=== PATIENT | female | born 1980 | race Two or more races ===

== ENCOUNTER → 2017-10-11 | Day surgery (SDC) | payer BC ==
[~2017-10-11] VITALS: Ht 30.5 cm; Wt 0.5 kg
[~2017-10-11] MED LIST: BUPIVACAINE 0.25% INJ 50ML VIAL ONE; BUPIVACAINE W/ EPINEPH 0.25% INJ 50ML MDV ONE; CONJ ESTROGENS 0.625MG/GM VAG CRM 30GM PV ONE; GLYCOPYRROLATE 0.2 MG/ML 1ML VIAL IV ONE; IODINE STRONG 5% SOLN 473ML ONE; LIDOCAINE 1% HCL (LOCAL ANESTH.) INJ 20ML MDV ONE; LIDOCAINE W/ EPINEPHRINE 1% 20ML VIAL ONE; MIDAZOLAM HCL 1MG/1ML-2 ML VIAL ONE; MORPHINE SULF INJ 2 MG/ML SYRINGE 1ML ONE; MORPHINE SULFATE 8mg/ml INJ SDV IV PRN; NEOSTIGMINE 1 MG/ML INJ (10mg/10ML VIAL) IV ONE; ONDANSETRON HCL 4 MG/2 ML VIAL IV ONE; PROPOFOL 10 MG/ML 20 ML IV ONE; ROCURONIUM 10MG/ML 10ML VIAL IV ONE; SILVER NITRATE-POTAS NITRA STICK TOP ONE; ePHEDrine SULFATE 50 MG/ML AMP IV PRN; fentaNYL CITRATE 100 MCG/2 ML VL ONE; hydrALAZINE HCL 20 MG/ML VL IV PRN
[2017-10-11 07:36] LABS: Basophils # (auto) 0.1 uL; Eosinophils # (auto) 0.2 uL; Eosinophils % (auto) 2.5 % (0.0-7.0); Hematocrit 34.7 % (36.0-46.0); Hemoglobin 11.5 g/dL (12.2-16.2); Lymphocytes # (auto) 2.2 uL; Lymphocytes % (auto) 24.9 % (10.0-50.0); Mean Corpuscular Hemoglobin 27.4 pg (28.0-32.0); Mean Corpuscular Hgb Conc. 33.2 g/dL (32.0-36.0); Mean Corpuscular Volume 82.5 fL (80.0-100.0); Monocytes # (auto) 0.5 uL; Monocytes % (auto) 6.1 % (0.0-12.0); Neutrophils # (auto) 5.8 uL; Neutrophils % (auto) 65.5 % (37.0-80.0); Platelet Count (auto) 298 10^3/uL (140-450); Red Blood Cells 4.21 10^6/uL (4.0-5.20); Red Cell Distribution Width 14.7 % (11.8-14.3); White Blood Cell 8.8 10^3/uL (4.4-10.8)
[2017-10-11 07:57] LABS: INR 0.98 (0.9-1.15); Partial Thromboplastin Time 26.2 sec (23.78-33.04); Prothrombin Time 10.5 sec (9.27-12.13)
[2017-10-11 08:08] LABS: BUN/Creatinine Ratio 13.3; Calcium 8.9 mg/dL (8.5-10.1); Potassium 4.4 mmol/L (3.5-5.1)
[2017-10-11 10:13] VITALS: BP 108/75
== END | disposition home or self-care (01) ==
LOC: SUR 06:27
PROVIDERS: ATTEND Obstetrics & Gynecology Gynecologic Oncology
DX: N92.0 Excessive and frequent menstruation with regular cycle (principal); N83.11 Corpus luteum cyst of right ovary; N73.9 Female pelvic inflammatory disease, unspecified; K21.9 Gastro-esophageal reflux disease without esophagitis
CPT/HCPCS: 36415; 58558; 58660; 80048; 84702; 85025; 85610; 85730; J2250; J2270; J2405; J2704; J3010; J7030; J7050; J2001; J3490